=== PATIENT | female | born 1960 | race Caucasian/White ===

== ENCOUNTER 2019-01-09 12:10 | Emergency (ER) | payer OTHER ==
[~2019-01-09] VITALS: Ht 160 cm; Wt 52.7 kg
[2019-01-09 12:37] VITALS: BP 134/87
--- NOTE | 2019-01-09 13:08 | NUR ---
PATIENT AMBULATED TO ER BED 9.
--- NOTE | 2019-01-09 13:15 | NUR ---
PT IS A 58 Y/O FEMALE WHO PRESENTS TO THE ED C/O L SHOULDER PAIN. PT STATES IT HAS BEEN BOTHERING HER X1 WEEK, DENIES TRAUMA/INJURY. PT REPORTS 10/10 ACHING L SHOULDER PAIN THAT DOES NOT RADIATE, WORSE WITH MOVEMENT. PT DENIES CP, SOB, N/V/D. PT AWAKE AND ALERT, RR EVEN/UNLABORED. PT REPOSITIONED FOR COMFORT, BED IN LOWEST POSITION. ER MD DR. NORIEGA NOTIFIED. WILL CONTINUE TO MONITOR. MEDHX:TITANIUM IN L FOOT RX:IBUPROFEN
--- NOTE | 2019-01-09 13:15 | NUR ---
ERMD AT BEDSIDE
[2019-01-09] MEDS ORDERED: DIAZEPAM 5 MG TAB PO ONE (13:25)
[2019-01-09] MEDS ORDERED: KETOROLAC 30 MG/ML VIAL IM ONE (13:25)
[2019-01-09 14:20] VITALS: BP 130/80
--- NOTE | 2019-01-09 14:24 | NUR ---
Patient discharged with v/s stable. Written and verbal after care instructions given and explained. Patient alert, oriented and verbalized understanding of instructions. All questions addressed prior to discharge. ID band removed. Patient advised to follow up with PMD. Rx of VALIUM AND IBUPROFEN given. Patient educated on indication of medication including possible reaction and side effects. Opportunity to ask questions provided and answered.
== END 2019-01-09 14:24 | disposition home or self-care (01) ==
LOC: MED 12:10
DX: S46.911A Strain of unspecified muscle, fascia and tendon at shoulder and upper arm level, right arm, initial encounter (principal); X58.XXXA Exposure to other specified factors, initial encounter; Y93.89 Activity, other specified; Y92.89 Other specified places as the place of occurrence of the external cause; Y99.8 Other external cause status
CPT/HCPCS: 96372; 99283; J1885

== ENCOUNTER 2019-05-24 14:50 | Emergency (ER) | payer OTHER ==
[~2019-05-24] VITALS: Ht 160 cm; Wt 52.6 kg
[2019-05-24 14:59] VITALS: BP 147/93
[2019-05-24] MEDS ORDERED: KETOROLAC 30 MG/ML VIAL IM ONE (15:55)
[2019-05-24] MEDS ORDERED: HYDROcodone/APAP 5/325 MG 1 TAB TAB PO ONE (15:55)
[2019-05-24 16:21] VITALS: BP 138/87
== END 2019-05-24 16:21 | disposition home or self-care (01) ==
LOC: MED 14:50
DX: S82.042A Displaced comminuted fracture of left patella, initial encounter for closed fracture (principal); W18.39XA Other fall on same level, initial encounter; Y92.89 Other specified places as the place of occurrence of the external cause; Y93.89 Activity, other specified; Y99.8 Other external cause status
CPT/HCPCS: 29505; 73562; 96372; 99283; J1885

== ENCOUNTER 2019-10-11 02:59 | Emergency (ER) | payer OTHER ==
[~2019-10-11] VITALS: Ht 160 cm; Wt 52.6 kg
[2019-10-11 03:04] VITALS: BP 115/70
--- NOTE | 2019-10-11 05:17 | NUR ---
PT TAKEN TO BED 7
--- NOTE | 2019-10-11 05:20 | NUR ---
PT 59 Y/O FEMALE BIB SELF FOR C/O NON PRODUCTIVE COUGH X 3 WEEKS. PT HAS C/O 10/10 STONE PAIN X A FEW HOURS. PT AAO X4. RESPIRATIONS ARE EVEN AND UNLABORED. LUNG SOUNDS CLEAR A/P BILAT. COUGH NOTED, NON-PRODUCTIVE. PT O2 SAT @ 100% ON RA. PT SKIN IS WARM AND DRY TO TOUCH. AFEBRILE. PT DENIES N/V/D. PT RESTING IN BED EYES CLOSED. BED LOCKED AND IN LOWEST POSITION. MED HX: ASTHMA ALLERGIES: NKDA
--- NOTE | 2019-10-11 05:43 | NUR ---
DR WRIGHT AT BEDSIDE.
[2019-10-11] MEDS ORDERED: ALBUTEROL 0.083% 2.5 MG/3 ML NEBU INH STA (05:48)
[2019-10-11] MEDS ORDERED: ACETAMINOPHEN 325 MG TAB PO STA (05:48)
[2019-10-11] MEDS ORDERED: guaiFENesin 20 MG/ML UDC PO STA (05:48)
[2019-10-11] MEDS ORDERED: ALBUTEROL SULFATE/IPRATROPIU 3 ML SOL IH STA (05:48)
--- NOTE | 2019-10-11 06:01 | NUR ---
Respiratory Therapist at bedside for respiratory intervention.
--- NOTE | 2019-10-11 06:10 | NUR ---
XRAY AT BEDSIDE.
--- NOTE | 2019-10-11 06:59 | NUR ---
PT STATES STONE PAIN HAS DECREASED FROM 10/10 TO 4/10 AFTER RECIVING TYLENOL.
[2019-10-11 07:00] VITALS: BP 115/70
== END 2019-10-11 07:00 | disposition home or self-care (01) ==
LOC: MED 02:59
DX: J45.909 Unspecified asthma, uncomplicated (principal); F17.200 Nicotine dependence, unspecified, uncomplicated
CPT/HCPCS: 71045; 94640; 99283; J7613; J7620; Q0092